=== PATIENT | male | born 1940 | race Caucasian/White ===

== ENCOUNTER 2016-10-25 23:38 | Emergency (ER) | payer MEDICARE ==
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
[2016-10-26 02:58] VITALS: BP 150/80
== END 2016-10-26 02:57 | disposition home or self-care (01) ==
LOC: ED 23:38
DX: H57.13 Ocular pain, bilateral (principal); Z87.891 Personal history of nicotine dependence; Z88.0 Allergy status to penicillin; K21.9 Gastro-esophageal reflux disease without esophagitis
CPT/HCPCS: 99282

== ENCOUNTER 2017-09-27 12:07 | Emergency (ER) | payer MEDICARE, OTHER ==
[2017-09-27] MEDS ORDERED: cefTRIAXone VIAL(*) 1,000 MG VIAL IVPB ONE (12:31)
[2017-09-27] MEDS ORDERED: Levofloxacin 750 MG IVPREMIX(* 750 MG/150 ML BAG IVPB ONE (12:33)
[2017-09-27 12:51] LABS: ABS Basophils 0 10^3/ul (0-0.2); ABS Eosinophils 0 10^3/ul (0-0.6); ABS Lymphocytes 1.1 10^3/ul (1.0-4.8); ABS Monocytes 0.9 10^3/ul (0-0.8); ABS Neutrophils 6.9 10^3/ul (1.5-7.7); ABS Nucleated RBC 0 10^3/ul; Eosinophil % 0.2 % (0-6); Hematocrit 41 % (42-52); Hemoglobin 13.8 g/dl (14.0-18.0); Lymphocyte % 11.9 % (25-47); Mean Corpuscular HGB Conc 34 g/dl (31-36); Mean Corpuscular Hemoglobin 31 pg (27-31); Mean Corpuscular Volume 91 fL (80-94); Mean Platelet Volume 6.9 um3 (7.4-10.4); Nucleated Red Blood Cells % 0; Platelet Count 276 10^3/ul (150-450); Red Blood Count 4.45 10^6/ul (4.00-5.40); Red Cell Distribution Width 14 % (10.5-15)
[2017-09-27 13:24] LABS: EGFR Non-African American 40.9 (>60)
--- NOTE | 2017-09-27 13:44 | RAD ---
INDICATION: Hypoxia COMPARISON: Chest x-ray December 24, 2013 TECHNIQUE: PA and lateral dual-energy views were obtained. FINDINGS: Bones/Soft Tissues: There are no acute bony findings. Cardiomediastinal: The cardiomediastinal silhouette is normal in size. There are findings that suggest pulmonary arterial hypertension. Lungs: There are no infiltrates. There is moderate hyperinflation. Pleura: There are no pleural effusions. Other: None IMPRESSION: MODERATE HYPERINFLATION. NO ACUTE INFILTRATES
[2017-09-27] MEDS ORDERED: NS 0.9% 1000 ML* 1,000 ML IV SCH (13:45)
[2017-09-27] MEDS ORDERED: Iodixanol* (CONTRAST) 320 MG/ML 100 ML SDV IV ONE (13:58)
--- NOTE | 2017-09-27 14:41 | RAD ---
INDICATION: COPD. Chest pain. Short of breath. Evaluate for pulmonary embolus. COMPARISON: Chest x-ray September 26, 2017; CTA chest December 24, 2013 TECHNIQUE: Axial source images were obtained from the thoracic inlet to the hemidiaphragms following administration of [address] angiographic technique was utilized. Coronal and sagittal reconstructed images were acquired. CHEST FINDINGS: Neck/thyroid: The visualized neck to include the thyroid appear normal. Chest wall: There are no acute abnormalities of the bony thorax or chest wall. There is no supraclavicular, infraclavicular, or axillary lymphadenopathy. Lungs : There are extensive emphysematous changes with coarsening of the interstitium. There are progressive changes in the right lung apex which has a somewhat masslike appearance. This change is probably related to progressive scarring. There are underlying calcifications. However, suggest noncontrast CT imaging follow-up in 3 months to assess for stability. If this increases in size, PET imaging could be considered to exclude an underlying mass. There are multiple blebs. There is nodular peripheral airspace disease in the right middle lobe and right lung base, unchanged. There are no endobronchial lesions. Cardiomediastinal structures: There is no CT evidence of acute pulmonary embolic disease. The heart is normal in size. There is no pericardial effusion. There is no evidence of aortic aneurysm or dissection. There is no mediastinal or hilar adenopathy. The esophagus appears normal. Pleura : There are no pleural-based masses or effusions. Other: None. IMPRESSION: 1. EXTENSIVE EMPHYSEMATOUS CHANGE WITH FOCAL AIRSPACE DISEASE RIGHT LUNG APEX LIKELY RELATED TO SCARRING BUT FOLLOW-UP IS RECOMMENDED TO EXCLUDE AN UNDERLYING MASS. 2. NO CT EVIDENCE OF ACUTE PULMONARY EMBOLIC DISEASE.
--- NOTE | 2017-09-27 16:26 | ED ---
Ethan Coto Natalie, scribed for Jon Sky MD on 09/27/17 at 1240 . Respiratory - HPI Summary HPI Summary: The patient is a 76 y/o M presenting to [facility] c/o productive cough and SOB starting 09/22/17 with gradual worsening throughout the week. He is not in any pain but additionally reports that he has been feeling dizzy, weak, and fatigued with an increase in sleeping. He also c/o chills with body shakes, nasal congestion, itchy ears, and numbness on top of left foot. He denies a sore throat. He has taken Mucinex to relieve the phlegm production with his cough to much relief. He has hx of double pneumonia in 1986 and an E. coli infection in 2005, both with similar symptoms to his current condition. He denies any other medical problems. Nonsmoker. - History of Current Complaint Chief Complaint: EDGeneral Stated Complaint: WEAKNESS Hx Obtained From: Patient Onset/Duration: Sudden Onset, Lasting Days, Still Present Initial Severity: Moderate Current Severity: Moderate Pain Intensity: 0 Character: Cough (Productive) Sputum Amount: Moderate Sputum Color: Green Aggravating Factor(s): Nothing Alleviating Factor(s): Other - Mucinex Associated Signs and Symptoms: Negative - sore throat, SOB, Chills - with body shakes, Nasal Congestion, Dizziness - Allergy/Home Medications Allergies/Adverse Reactions: Allergies Allergy/AdvReac Type Severity Reaction Status Date / Time Penicillins Allergy Hives Verified 09/27/17 12:16 PMH/Surg Hx/FS Hx/Imm Hx Endocrine/Hematology History: Denies: Hx Anticoagulant Therapy, Hx Blood Disorders, Hx Diabetes Respiratory History: Reports: Hx Pneumonia GI History: Reports: Hx Gastroesophageal Reflux Disease, Other GI Disorders - polyps Sensory History: Reports: Hx Contacts or Glasses Denies: Hx Cataracts, Hx Eye Injury, Hx Eye Prosthesis, Hx Glaucoma, Hx Legally Blind, Hx Macular Degeneration, Hx Vision Problem Opthamlomology History: Reports: Hx Contacts or Glasses Denies: Hx Cataracts, Hx Eye Injury, Hx Eye Prosthesis, Hx Glaucoma, Hx Legally Blind, Hx Macular Degeneration, Hx Vision Problem Infectious Disease History: No Infectious Disease History: Denies: Traveled Outside the [place] in Last 30 Days - Family History Known Family History: Negative: Respiratory Disease - Social History Alcohol Use: None Hx Substance Use: No Substance Use Type: Reports: None Hx Tobacco Use: Yes Smoking Status (MU): Former Smoker Type: Cigarettes Review of Systems Positive: Chills - with body shakes, Fatigue - with increased sleeping Positive: Other - nasal congestion, itchy ears. Negative: Sore Throat Positive: Shortness Of Breath, Cough - productive Neurological: Other - dizziness Positive: Weakness, Numbness - on top of left foot All Other Systems Reviewed And Are Negative: Yes Physical Exam - Summary Physical Exam Summary: Appearance: Well-appearing, Well-nourished Skin: Warm Eyes: Normal ENT: Normal Neck: Supple, nontender Respiratory: Clear to auscultation, bibasilar decreased breath sounds Cardiovascular: Regular rate, regular rhythm. Normal S1, S2. Abdomen: Soft, nontender Musculoskeletal: Normal, Strength/ROM Intact Neurological: Normal, A&Ox3 Psychiatric: Normal General: No acute distress Triage Information Reviewed: Yes Vital Signs On Initial Exam: Initial Vitals Temp Pulse Resp BP Pulse Ox 97.3 F 82 18 130/55 92 09/27/17 12:10 09/27/17 12:10 09/27/17 12:10 09/27/17 12:10 09/27/17 12:10 Vital Signs Reviewed: Yes Diagnostics - Vital Signs Vital Signs Temp Pulse Resp BP Pulse Ox 09/27/17 12:10 97.3 F 82 18 130/55 92 - Laboratory Lab Results: Lab Results 09/27/17 09/27/17 Range/Units 12:44 12:44 WBC 9.0 (3.5-10.8) 10^3/ul RBC 4.45 (4.00-5.40) 10^6/ul Hgb 13.8 L (14.0-18.0) g/dl Hct 41 L (42-52) % MCV 91 (80-94) fL MCH 31 (27-31) pg MCHC 34 (31-36) g/dl RDW 14 (10.5-15) % Plt Count 276 (150-450) 10^3/ul MPV 6.9 L (7.4-10.4) um3 Neut % (Auto) 77.0 (38-83) % Lymph % (Auto) 11.9 L (25-47) % Towns % (Auto) 10.4 H (0-7) % Eos % (Auto) 0.2 (0-6) % Baso % (Auto) 0.5 (0-2) % Absolute Neuts (auto) 6.9 (1.5-7.7) 10^3/ul Absolute Lymphs (auto) 1.1 (1.0-4.8) 10^3/ul Absolute Monos (auto) 0.9 H (0-0.8) 10^3/ul Absolute Eos (auto) 0 (0-0.6) 10^3/ul Absolute Basos (auto) 0 (0-0.2) 10^3/ul Absolute Nucleated RBC 0 10^3/ul Nucleated RBC % 0 Sodium 135 (135-145) mmol/L Potassium 4.1 (3.5-5.0) mmol/L Chloride 100 L (101-111) mmol/L Carbon Dioxide 27 (22-32) mmol/L Anion Gap 8 (2-11) mmol/L BUN 23 (6-24) mg/dL Creatinine 1.64 H (0.67-1.17) mg/dL Est GFR ( Amer) 49.5 (>60) Est GFR (Non-Af Amer) 40.9 (>60) BUN/Creatinine Ratio 14.0 (8-20) Glucose 115 H (70-100) mg/dL Calcium 8.6 (8.6-10.3) mg/dL Total Bilirubin 0.70 (0.2-1.0) mg/dL AST 25 (13-39) U/L ALT 22 (7-52) U/L Alkaline Phosphatase 74 (34-104) U/L Troponin I 0.01 (<0.04) ng/mL Total Protein 7.2 (6.4-8.9) g/dL Albumin 3.6 (3.2-5.2) g/dL Globulin 3.6 (2-4) g/dL Albumin/Globulin Ratio 1.0 (1-3) Result Diagrams: 09/27/17 12:44 09/27/17 12:44 Lab Statement: Any lab studies that have been ordered have been reviewed, and results considered in the medical decision making process. - Radiology CXR Xray Interpretation: Positive (See Comments) - Moderate hyperinflation. No acute infiltrates. ED physician has reviewed this report. Radiology Interpretation Completed By: Radiologist - CT Chest/Thorax CTA CT Interpretation: Positive (See Comments) - 1. Extensive emphysematous change with focal airspace disease right lung apex likely related to scarring but follow-up is recommended to exclude an underlying mass. 2. No ct evidence of acute pulmonary embolic disease. ED physician has reviewed this report. CT Interpretation Completed By: Radiologist - EKG 12:52 Cardiac Rate: NL EKG Rhythm: Sinus Rhythm - 72 BPM EKG Interpretation: Multiple PVCs. EKG Comparison: No Significant Change - Unchanged from previous. 12:42 Cardiac Rate: NL EKG Rhythm: Sinus Rhythm - 76 BPM EKG Interpretation: Multiple PVCs. EKG Comparison: No Significant Change - Unchanged from previous. Disposition - Course Assessment/Plan: SOB- CXR- hyperinflated lungs, +perihilar densities, CT chest for r/o PE done due to mild hypoxia- extensive emphysematous change with focal airspace dz right lung liuekly related to scarring but rec f/u. NO acute evidence of PE. Curretnly sx of SOB with productive cough likely related to COPD exacerbation related to acute bronchitis. WIll send home with Z mirna - Diagnoses Provider Diagnoses: COPD exacerbation, Emphysema of lung, Bronchitis Discharge - Sign-Out/Discharge Documenting (check all that apply): Discharge/Admit/Transfer - Discharge Plan Condition: Stable Disposition: HOME Patient Education Materials: COPD (Chronic Obstructive Pulmonary Disease) (ED) , Emphysema (ED), Acute Bronchitis (ED) Referrals: No Primary Care Phys,NOPCP [Primary Care Provider] - - Billing Disposition and Condition Condition: STABLE Disposition: Home The documentation as recorded by the Ethan velasquez Natalie accurately reflects the service I personally performed and the decisions made by Jose Daniel steele Euni, MD.
[2017-09-27] MEDS ORDERED: Aztreonam (*) 2 GM in NS 0.9% 50 ML* 50 ML IVPB SCH (16:30)
[2017-09-27 17:25] VITALS: BP 113/53
== END 2017-09-27 17:24 | disposition home or self-care (01) ==
LOC: ED 12:07
DX: J44.1 Chronic obstructive pulmonary disease with (acute) exacerbation (principal); R05 Cough; R06.02 Shortness of breath; R09.81 Nasal congestion; J43.9 Emphysema, unspecified; J40 Bronchitis, not specified as acute or chronic
CPT/HCPCS: 36415; 71046; 71275; 80053; 84484; 85025; 87040; 93005; 96365; 96366; 99283; Q9967